=== PATIENT | female | born 2000 | race Caucasian/White ===

== ENCOUNTER 2023-07-17 20:38 | Emergency (ER) | payer OTHER ==
[~2023-07-17] VITALS: Ht 152.4 cm; Wt 165.0 kg
[2023-07-17 20:52] VITALS: TEMP 103.2
[2023-07-17] MEDS ORDERED: ACETAMINOPHEN 500 MG TABLET PO ONE (21:00)
[2023-07-17 21:15] LABS: COVID AG,FIA SOURCE NASAL SWAB
[2023-07-17 21:30] LABS: RAPID GROUP A STREP NEGATIVE (NEGATIVE)
[2023-07-17 21:37] LABS: SARS-COV2 (COVID) ANTIGEN,FIA Negative (Negative)
[2023-07-17 21:38] LABS: INFLUENZA TYPE A NEGATIVE FOR TYPE A (NEGATIVE); INFLUENZA TYPE B NEGATIVE FOR TYPE B (NEGATIVE)
[2023-07-17 22:08] VITALS: BP 121/70; PULSE 103; RESP 16
[2023-07-17] MEDS ORDERED: AZITHROMYCIN 500 MG TABLET PO ONE (23:00)
[2023-07-17] MEDS ORDERED: IBUPROFEN 600 MG TABLET PO ONE (23:00)
[2023-07-17] MEDS ORDERED: AZIT250T9 PO (23:06)
== END 2023-07-17 23:14 | disposition home or self-care (01) ==
LOC: EMS 20:41
DX: J02.9 Acute pharyngitis, unspecified (principal); Z88.0 Allergy status to penicillin; Z20.822 Contact with and (suspected) exposure to COVID-19
CPT/HCPCS: 87430; 87804; 99284; Q9967; Z7502; Z7610